=== PATIENT | male | born 1935 | race Caucasian/White ===

== ENCOUNTER 2016-06-07 16:08 | Inpatient (IN) | payer OTHER, MEDICARE ==
[~2016-06-07] VITALS: Ht 172.7 cm; Wt 77.2 kg
[~2016-06-07 16:08] MED LIST: LEVAQUIN500 M1 PO; MEDROL4 M2 PO; PROAIR HFA8.5 GM INH
--- NOTE | 2016-06-07 16:21 | NUR ---
TRIAGE: PT TO ER WITH C/C SWELLING TO BLE IN THE LAST 1-2 WEEKS, 18 LB WEIGHT GAIN IN APPROX 1 MONTH. SENT TO ER BY DR SERRANO OFFICE FOR EVAL. ?FLUID OVERLOAD. TAKES LASIX DAILY BUT "ALL OF A SUDDEN IT DON'T WORK ANY MORE". STATES GETS SOB WHEN WALKING OR GOING UPSTAIRS. DENIES ANY PAIN.
--- NOTE | 2016-06-07 16:21 | NUR ---
Informed waiting has been performed.
--- NOTE | 2016-06-07 18:44 | NUR ---
LABS DRAWN AND SENT LAV SST BLUE GRY
[2016-06-07 18:50] LABS: ABSOLUTE BASOPHIL COUNT 0 /CUMM (0.0-0.2); ABSOLUTE EOSINOPHIL COUNT 0.1 /CUMM (0.0-0.7); ABSOLUTE GRANULOCYTE CT 6.7 /CUMM (1.4-6.5); ABSOLUTE MONOCYTE COUNT 0.8 /CUMM (0.10-0.60); BASOPHIL % 0.3 % (0.0-2.0); EOSINOPHIL % 0.9 % (0-5); HEMATOCRIT 39.3 % (42-52); MEAN CORPUSCULAR HGB 30.6 PG (27.0-31.0); MEAN CORPUSCULAR HGB CONC 32.9 G/DL (33.0-37.0); MEAN CORPUSCULAR VOLUME 92.9 FL (80.0-94.0); MEAN PLATELET VOLUME 8.1 FL (7.4-10.4); PLATELET COUNT 152 /CUMM (130-400); RBC DISTRIBUTION WIDTH 16.9 % (11.5-14.5); RED BLOOD CELL CT 4.23 /CUMM (4.70-6.10); WHITE BLOOD CELL COUNT 8.7 /CUMM (4.8-10.8)
--- NOTE | 2016-06-07 19:30 | ED CARDIAC/CP/PALPITATIONS ---
History of Present Illness General Chief Complaint: General Adult Stated Complaint: SENT BY MD FOR EVAL ? FLUID OVERLOAD Source: patient Exam Limitations: no limitations Allergies Coded Allergies: Penicillins (Mild, RASH 06/07/16) Reconcile Medications Aspirin (Ecotrin*) 81 MG TABLET.DR 1 TAB PO DAILY HEART/BLOOD (Reported) Atorvastatin Calcium 40 MG TABLET 1 TAB PO DAILY CHOLESTEROL (Reported) Diltiazem HCl (Diltiazem 24HR ER) 180 MG CAP.ER.24H 1 CAP PO DAILY HEART ( Reported) Ergocalciferol (Vitamin D2) (Vitamin D) 400 UNIT TABLET 2 TAB PO DAILY SUPPLEMENT (Reported) Flaxseed Oil (Flax Oil) 1,000 MG CAPSULE 1 CAP PO DAILY SUPPLEMENT (Reported) Furosemide 20 MG TABLET 1 TAB PO DAILY DIURETIC (Reported) Lisinopril 40 MG TABLET 1 TAB PO DAILY BP (Reported) Metoprolol Succinate 50 MG TAB.ER.24H 1 TAB PO DAILY HEART/BP (Reported) Warfarin Sodium 3 MG TABLET 1 TAB PO DAILY BLOOD THINNER (Reported) Triage Note: TRIAGE: PT TO ER WITH C/C SWELLING TO BLE IN THE LAST 1-2 WEEKS, 18 LB WEIGHT GAIN IN APPROX 1 MONTH. SENT TO ER BY DR SERRANO OFFICE FOR EVAL. ?FLUID OVERLOAD. TAKES LASIX DAILY BUT "ALL OF A SUDDEN IT DON'T WORK ANY MORE". STATES GETS SOB WHEN WALKING OR GOING UPSTAIRS. DENIES ANY PAIN. Triage Nurses Notes Reviewed? yes HPI: 81 YO MALE WITH WORSENING B PEDAL EDEMA, WORSENING DIA, 8-10 STEPS AND HE NEEDS TO SIT, NO CP, NO NV, NO FEVER, NO CHILLS, NO RECENT TRAVEL. HE IS ON LASIX. NO MISSED DOSES. NO COUGH. HE IS ON LASIX AND COUMADIN. SX STARTED 3 WEEKS AGO AND ARE GETTING WOSRE. Patient noted to have a heart rate in the 50s upon arrival to ER room for, I discussed this with patient, he is comfortable in the bed, does not feel any shortness of breath or palpitations. States that he does not know that he's ever been told he has had a slow heart rate before He sees Dr. Alan Shabazz from cardiology. (RODRICK REESE,ELEANOR) Vital Signs & Intake/Output Vital Signs & Intake/Output Vital Signs Date Time Temp Pulse Resp B/P Pulse O2 O2 Flow FiO2 Ox Delivery Rate 06/09 0819 97.4 81 18 110/70 96 Room Air 06/09 0025 98.2 62 18 110/50 91 Room Air 06/09 0000 Room Air 06/08 1600 Room Air 06/08 1546 98.0 86 17 140/70 94 Room Air ED Intake and Output 06/09 0000 06/08 1200 Intake Total 1200 400 Output Total 1200 1300 Balance 0 -900 Intake, IV 0 Intake, Oral 1200 400 Number 0 Bowel Movements Output, Urine 1200 1300 Patient 171 lb Weight Past History Travel History Traveled to [place] past 21 day No Medical History Any Pertinent Medical History? 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 History of prior cholangitis in 2002 and ERCP in 2002 Surgical History Surgical History: CABG Psychosocial History Who do you live with Patient/Self Services at Home None What is your primary language [place] Tobacco Use: Quit >30 days ago ETOH Use: denies use Illicit Drug Use: denies illicit drug use Family History Hx Contributory? No (ELEANOR VANEGAS) Review of Systems Review of Systems Constitutional: Reports: see HPI. EENTM: Reports: no symptoms. Respiratory: Reports: see HPI. Cardiovascular: Reports: see HPI. GI: Reports: no symptoms. Genitourinary: Reports: no symptoms. Musculoskeletal: Reports: no symptoms. Skin: Reports: no symptoms. Neurological/Psychological: Reports: no symptoms. Hematologic/Endocrine: Reports: no symptoms. Immunologic/Allergic: Reports: no symptoms. All Other Systems: Reviewed and Negative (ELEANOR VANEGAS) Physical Exam Physical Exam Cardiovascular: POSITIVE SYSTOLIC MURMUR, HEART RATE AROUND 50 BPM, IRREGULARLY IRREGULAR Comments: Well-developed well-nourished no apparent distress. HEENT: Atraumatic, extraocular motion intact Neck: Supple, no lymphadenopathy, mildly elevated JVP Back: Nontender Respiratory: No respiratory distress, mild crackles noted, midline surgical incision well-healed Abdomen: Obese, nontender Extremities: 2+ pitting bilateral lower extremity edema up to the knee, full range of motion There are small superficial wounds in various stages of healing noted to the pretibial region. Neuro: Alert and oriented x3 Psych: Mood affect normal, normal memory normal judgment. Skin: Warm and dry, no rash on exposed skin (ELEANOR VANEGAS) Core Measures ACS in differential dx? Yes Severe Sepsis Present: No Septic Shock Present: No (NIRAJ SANDERS,MARTHA Flannery) Progress Differential Diagnosis: AMI, aortic dissection, atrial fibrillation, cholecystitis, CHF/pulm edema, costochondritis, hyperkalemia, hypovolemia, hyperthyroid, hyperventilation, intracranial hemorrhage, musculoskeletal pain, myocarditis, pancreatitis, pericarditis, pneumonia, pneumothorax, PSVT, pulmonary embolism, PUD/GERD, PVCs/PACs, respiratory failure, rib fracture, sepsis, unstable angina, V-fib/V-Tach, WPW syndrome Initial ED EKG: ATRIAL FLUTTER, 50 BPM, RIGHT BUNDLE BRANCH BLOCK IS LOWER THAN PREVIOUS ekg, 87 BPM Prior EKG: changed Rhythm Strip: ATRIAL FLUTTER AT 50 BPM Comments: Patient with bradycardia, questionable new onset, he is asymptomatic while lying in the bed. We'll pursue cardiac workup, questionable CHF. Given 40 mg of Lasix IV. Discussed with Dr. Wharton, signed out at change of shift. (ELEANOR VANEGAS) Plan of Care: Orders Procedure Date/time Status PROTHROMBIN TIME 06/10 0600 Active MAGNESIUM 06/10 0600 Active BASIC ELECTROLYTES PLUS BUN&CR 06/10 0600 Active XRY-CHEST XRAY, PA AND LATERAL 06/09 0902 Active PROTHROMBIN TIME 06/09 0600 Complete MAGNESIUM 06/09 0600 Complete BASIC ELECTROLYTES PLUS BUN&CR 06/09 0600 Complete MAGNESIUM 06/08 1755 Complete BASIC ELECTROLYTES PLUS BUN&CR 06/08 1755 Complete MAGNESIUM 06/08 0655 Complete PT Evaluate & Treat 06/08 UNK Active Lab Add-on Test 06/08 UNK Active Current Medications Sig/Duane Start time Last Medication Dose Stop Time Status Admin Warfarin Sodium 3 MG COUMADIN 1700 ONE 06/09 1700 AC (Coumadin) 06/09 1701 Metoprolol Succinate 25 MG DAILY 06/09 1000 AC (Toprol XL) Oxycodone HCl 10 MG Q6P PRN 06/07 2245 AC (Roxicodone) Laboratory Tests 06/09/16 0610: Anion Gap 6, Estimated GFR 42 L, BUN/Creatinine Ratio 16.3, Magnesium 1.7, PT 24.3 H, INR 2.33 H 06/08/16 1800: Anion Gap 10, Estimated GFR 42 L, BUN/Creatinine Ratio 15.6, Magnesium 1.6 06/08/16 1739: Magnesium Cancelled Diagnostic Imaging: Viewed by Me: Radiology Read. Discussed w/RAD: Radiology Read. CXR Impression: PATIENT: CHRIS LANDERS PRESENT AGE: 81 PATIENT ACCOUNT NO: [id number] : 34 LOCATION: [facility] ORDERING PHYSICIAN: ELEANOR REESE SERVICE DATE: 06/07/16 EXAM TYPE: RAD - XRY-PORTABLE CHEST XRAY EXAMINATION: XR PORTABLE CHEST CLINICAL INFORMATION: CHF COMPARISON: 07/29/2015 TECHNIQUE: Portable AP view of the chest was obtained. FINDINGS: Cardiac leads overlie the chest. Median sternotomy wires appear intact. Surgical clips overlie the mediastinum. The lungs are well expanded. Mild interstitial prominence noted with central vascular prominence. No pleural effusion or pneumothorax. The cardiomediastinal silhouette remains prominent. IMPRESSION: Findings suggestive of volume overload with central vascular prominence and interstitial prominence. Prominent cardiac silhouette. DICTATED BY: JEREMIAS RUCKER MD DATE/TIME DICTATED:06/07/162016 DIAMOND POLISHER: MICKIE DATE/TIME TRANSCRIBED:06/07/162016 CONFIDENTIAL, DO NOT COPY WITHOUT APPROPRIATE AUTHORIZATION. <Electronically signed in Other Vendor System> SIGNED BY: JEREMIAS RUCKER MD 06/07/162020 Comments: His ambulatory saturation was 94% on room air. (NIRAJ SANDERS,MARTHA Flannery) Departure Departure Referrals: SWETHA TERRAZAS MD (PCP/Family) Departure Forms: Customer Survey General Discharge Information (RODRICK REESE,ELEANOR) Departure Disposition: STILL A PATIENT Condition: Guarded Clinical Impression Primary Impression: Pulmonary edema Admission Note Spoke With: ALAN SHABAZZ MD, V. Documentation of Exam: Documentation of any treatments & extenuating circumstances including Concerns Regarding Discharge (functional status, medication knowledge or non-compliance, living conditions, etc.) that warrant an admission rather than observation: [ Patient is fluid overloaded and has pulmonary edema. Patient has no history of pulmonary edema. Patient will require admission to telemetry with serial enzymes, IV diuresis and cardiology evaluation.] PA/FIELD INSTRUCTOR Co-Sign Statement Statement: ED Attending supervision documentation- [X] I saw and evaluated the patient. I have also reviewed all the pertinent lab results and diagnostic results. I agree with the findings and the plan of care as documented in the PA's/FIELD INSTRUCTOR's documentation. [X] I have reviewed the ED Record and agree with the PA's/FIELD INSTRUCTOR's documentation. [] Additions or exceptions (if any) to the PAs/FIELD INSTRUCTOR's note and plan are summarized below: [] (NIRAJ SANDERS,MARTHA Flannery) Critical Care Note Critical Care Note Critical Care Time: non-applicable (NIRAJ SANDERS,MARTHA Flannery)
[2016-06-07] MEDS ORDERED: DILTIAZEM 24HR180 MG PO (19:51)
[2016-06-07] MEDS ORDERED: LOSARTAN POTASS25 M1 PO (19:51)
[2016-06-07] MEDS ORDERED: ATORVASTATIN CA40 M1 PO (19:51)
[2016-06-07] MEDS ORDERED: METOPROLOL SUCC50 M2 PO (19:52)
[2016-06-07] MEDS ORDERED: WARFARIN SODIUM3 M1 PO (19:53)
[2016-06-07] MEDS ORDERED: PREDNISONE10 M2 PO (19:53)
[2016-06-07] MEDS ORDERED: FUROSEMIDE20 M1 PO (19:53)
[2016-06-07] MEDS ORDERED: FLAX OIL1000 M1 PO (19:56)
[2016-06-07] MEDS ORDERED: ASPIRIN EC81 M1 PO (19:56)
[2016-06-07] MEDS ORDERED: VITAMIN D400 UNIT PO (19:56)
--- NOTE | 2016-06-07 19:56 | NUR ---
CHEST XRAY BEING DONE AT BEDSIDE
[2016-06-07] MEDS ORDERED: LISINOPRIL40 M1 PO (19:57)
[2016-06-07 19:59] LABS: PT 25.9 SEC (9.4-12.5)
--- NOTE | 2016-06-07 20:21 | RADIOLOGY REPORT ---
EXAMINATION: XR PORTABLE CHEST CLINICAL INFORMATION: CHF COMPARISON: 07/29/2015 TECHNIQUE: Portable AP view of the chest was obtained. FINDINGS: Cardiac leads overlie the chest. Median sternotomy wires appear intact. Surgical clips overlie the mediastinum. The lungs are well expanded. Mild interstitial prominence noted with central vascular prominence. No pleural effusion or pneumothorax. The cardiomediastinal silhouette remains prominent. IMPRESSION: Findings suggestive of volume overload with central vascular prominence and interstitial prominence. Prominent cardiac silhouette.
--- NOTE | 2016-06-07 20:30 | NUR ---
PT MEDICATED WITH 40 MG LASIX IV PER EMAR
--- NOTE | 2016-06-07 21:09 | NUR ---
PT'S AMBULATORY O2 SAT 94%-95% ON ROOM AIR. DR HEALY NOTIFIED.
--- NOTE | 2016-06-07 22:03 | NUR ---
PT MEDICATED WITH ANOTHER 40MG IV LASIX PER EMAR. LIGHTS DIMMED FOR COMFORT. WILL CTM AND MONITOR OUTPUT. PT REMAINS A FLUTTER ON MONITOR HR 60.
--- NOTE | 2016-06-07 22:36 | History & Physical ---
JENNIFER SANDERS,AZRA 06/07/16 2229: General Information and HPI MD Statement: I have seen and personally examined CHRIS LANDERS and documented this H&P. The patient is a 81 year old M who presented with a patient stated chief complaint of [shortness of breath on exertion]. Source of Information: patient, old records Exam Limitations: no limitations History of Present Illness: This is an 81-year-old gentleman with a past history significant for hypertension, atrial fibrillation, hyperlipidemia, coronary artery disease status post CABG in 2004, aortic valve replacement with porcine presents to the emergency room sent in from his PCPs office with progressive dyspnea. Patient states that over the course of last couple of days he's been having dyspnea with exertion. He was seen in this PCPs office this afternoon for the same who recommended he come to the emergency room given the fact that his dyspnea on exertion which is alleviated with rest and also the fact that he has put on over 16 pounds of weight over the course of last 2 weeks. Patient was given IV Lasix in the emergency room and has diuresed significantly with alleviation of his shortness of breath. At present he is sitting comfortably in his hospital bed denies any chest pain, shortness of breath, nausea, vomiting, diarrhea, fevers, chills, recent illnesses sick contacts. He denies any orthopnea or paroxysmal nocturnal dyspnea, he uses one pillow to sleep and this has remained constant. 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 History of prior cholangitis in 2002 and ERCP in 2002 Surgical History Surgical History: CABG Past Family/Social History Psychosocial History Services at Home: None Smoking Status: Former Smoker ETOH Use: denies use Illicit Drug Use: denies illicit drug use Review of Systems Review of Systems Constitutional: Reports: see HPI. Exam & Diagnostic Data Last 24 Hrs of Vital Signs/I&O Vital Signs Date Time Temp Pulse Resp B/P Pulse O2 O2 Flow FiO2 Ox Delivery Rate 06/07 2204 97.5 60 22 136/68 97 Room Air 06/07 2045 Room Air 06/07 1616 97.3 52 24 144/69 97 Room Air Physical Exam General Appearance Alert, Oriented X3, Cooperative, No Acute Distress Skin No Breakdown HEENT Atraumatic, PERRLA, EOMI Neck Supple, No JVD Lymphatic Axillary nl, Cervical nl Cardiovascular Regular Rate, Normal S1, Normal S2, 3/6 MYKE RUSB Lungs Normal Air Movement, faint crackles b/l lung bases Abdomen Normal Bowel Sounds, Soft, No Tenderness, No Hepatospenomegaly Neurological Normal Speech, Strength at 5/5 X4 Ext, Normal Tone, Sensation Intact, Cranial Nerves 3-12 NL Extremities No Clubbing, No Cyanosis, 2+ b/l LE edema Last 24 Hrs of Labs/Zachary: Laboratory Tests 06/07/16 1842: Anion Gap 9, Estimated GFR 39 L, BUN/Creatinine Ratio 17.1, Glucose 137 H, Calcium 9.1, Magnesium 1.8, Total Bilirubin 0.9, AST 29, ALT 36, Alkaline Phosphatase 78, Troponin I 0.03, [id number] Pept 2820 H, Total Protein 6.4, Albumin 3.5, Globulin 2.9, Albumin/Globulin Ratio 1.2, PT 25.9 H, INR 2.49 H, CBC w Diff NO MAN DIFF REQ, RBC 4.23 L, MCV 92.9, MCH 30.6, RDW 16.9 H, MPV 8.1, Gran % 77.0 H, Lymphocytes % 12.1 L, Monocytes % 9.7 H, Eosinophils % 0.9, Basophils % 0.3, Absolute Granulocytes 6.7 H, Absolute Lymphocytes 1.0 L, Absolute Monocytes 0.8 H, Absolute Eosinophils 0.1, Absolute Basophils 0, PUBS MCHC 32.9 L Diagnostic Data EKG Results Rate 49, QRS 138, QTC 387, atrial fibrillation, right bundle ranch block, no changes since previous tracing CXR Results IMPRESSION: Findings suggestive of volume overload with central vascular prominence and interstitial prominence. Prominent cardiac silhouette. Assessment/Plan Assessment: Assessment- 1. Fluid overload and pulmonary edema likely secondary to acute on chronic congestive heart failure 2. Dyspnea on exertion again likely secondary to CHF 3. History of coronary artery disease status post CABG in 2004 4. Porcine aortic valve replacement in 2004 5. Chronic atrial fibrillation 6. Hypertension 7. Hyperlipidemia 8. Chronic kidney disease Plan- Admit to telemetry Vitals per protocol Trend troponin and EKG Has received 80 mg of IV Lasix, will defer further diuresis until the morning after his renal function is assessed after morning labs Echocardiogram Cardiology consult Strict I's and O's, daily weight Fluid restriction CHF diet Hold ZAC Continue all other home meds Pain pathway DVT prophylaxis been addressed with Coumadin Full code As Ranked By This Provider Problem List: 1. Pulmonary edema 2. Replacement of aortic valve 3. Dyslipidemia 4. Essential hypertension 5. Coronary arteriosclerosis Core Measures/Miscellaneous Acute Coronary Syndrome ACS Diagnosis: No Cerebrovascular Accident CVA/TIA Diagnosis: No Congestive Heart Failure CHF Diagnosis: Yes Comment: last echo 2002, unavailable Venous Thromboembolism VTE Risk Factors: Age > 40 VTE Prophylaxis Ordered Inpt: Pharm- Warfarin No Mech VTE prophylaxis d/t: No contraindications No VTE Pharm Prophylaxis d/t: No contraindications VTE Diagnosis: No VTE Type: NONE VTE Confirmed by (Test): NONE Severe Sepsis Severe Sepsis Present: No Septic Shock Septic Shock Present: No Miscellaneous Documentation Attending Case Discussed With: BRIELLE SHABAZZ MD, V. Primary Care Physician: SWETHA TERRAZAS MD Patient sees these Specialists Dr. Shabazz (Cardio) Dr. Herrera (Nephro at [facility]) Level of Patient Care: Telemetry Resident Review Statement Resident Statement: examined this patient, discussed with manufacturing engineering intern BRIELLE SHABAZZ MD 06/08/16 0915: General Information and HPI Allergies/Medications Home Med list Aspirin (Ecotrin*) 81 MG TABLET.DR 1 TAB PO DAILY HEART/BLOOD (Reported) Atorvastatin Calcium 40 MG TABLET 1 TAB PO DAILY CHOLESTEROL (Reported) Diltiazem HCl (Diltiazem 24HR ER) 180 MG CAP.ER.24H 1 CAP PO DAILY HEART ( Reported) Ergocalciferol (Vitamin D2) (Vitamin D) 400 UNIT TABLET 2 TAB PO DAILY SUPPLEMENT (Reported) Flaxseed Oil (Flax Oil) 1,000 MG CAPSULE 1 CAP PO DAILY SUPPLEMENT (Reported) Furosemide 20 MG TABLET 1 TAB PO DAILY DIURETIC (Reported) Warfarin Sodium 3 MG TABLET 1 TAB PO DAILY BLOOD THINNER (Reported) Attending MD Review Statement Attending Statement Attending MD Statement: examined this patient, discuss w/resident/PA/PRIVATE INQUIRY AGENT Attending Assessment/Plan: Chris Landers is an 81-year-old male who I have been following for over 30 years. He originally had bypass surgery in 1980. In 1991 he had angioplasty and had several recurrent angioplasties since then. In 2004 he had a redo bypass, and at this point had an aortic valve replacement with a bioprosthesis for severe aortic stenosis. His bypass surgery in 2004 was a POWER to the LAD and saphenous vein graft to the marginal PDA. Since that time, he has been doing pretty well from the standpoint of ischemia. He has had no further ischemic events, myocardial infarctions, etc. The patient also has atrial flutter, which was first noted in 2009. This was asymptomatic and seen on a routine EKG. He was treated medically with beta blockers and anticoagulation. His heart rate has been stable. His average heart rate in 2012 was 66 on a Holter. He had occasional mild pauses but he is asymptomatic from this, and it was determined at that time that there is no indication for a pacemaker unless he should develop symptoms of bradycardia. He is also hypertensive and has dyslipidemia and these are under pretty good control. Finally he has had prostate cancer treated with radiation in 2011. At his last office visit about 1 year ago he had a complaint of shortness of breath with more than usual exertion and got pretty short of breath when he was helping his daughter move heavy objects. He typically does not do that level of exercise. He had no complaints of chest pain, palpitations, orthopnea, PND, dizziness, or syncope. He had no change in his medications. He did note that his blood pressure was running a little high when he gets his blood pressure checked at the anticoagulation clinic. I checked it and the blood pressure was running in the 150 to 160 range at his visits. He is on diltiazem, lisinopril, lasix and metoprolol. His anticoagulation has been going well. Chris hasn't been seen in the office for over a year because he is having was having problems with his insurance and kept canceling appointments. He actually has an appointment to see me in a couple of weeks. However over the past couple of weeks he has noted increasing shortness of breath, edema and weight gain. He finally came to the emergency room and was found to be in congestive heart failure. He has been given IV Lasix and is already diuresing significantly. He has not had any chest pain. His enzymes are negative so far. His EKG shows atrial flutter with right bundle branch block, which is his baseline. On examination he has a few posterior rales and a prominent systolic ejection murmur at the base and apex. He has mild peripheral edema. It is not clear why Chris went into congestive heart failure. His last echocardiogram showed good left ventricular function. We will obviously get another echocardiogram to look for any changes. In the meantime I would continue him on IV Lasix and monitor his electrolytes closely. continue him on IV Lasix and monitor his electrolytes closely.
--- NOTE | 2016-06-07 22:44 | NUR ---
PT HAS BED #180-2
--- NOTE | 2016-06-07 22:50 | NUR ---
PT VOIDED TOTAL OF 900CCS CLEAR YELLOW URINE SO FAR. AFIB ON MONITOR HR 60. DENIES SOB.
--- NOTE | 2016-06-07 23:02 | NUR ---
REPORT GIVEN TO GRACIE YO.
--- NOTE | 2016-06-07 23:11 | NUR ---
PT MEDICATED WITH COUMADIN PER EMAR.
[2016-06-08 08:06] VITALS: BP 128/78
[2016-06-08 08:30] LABS: PT 26.8 SEC (9.4-12.5)
--- NOTE | 2016-06-08 13:02 | PN- Housestaff ---
Subjective Follow-up For: Acute CHF exacerbation Tele-Events Since Last Visit: Atrial flutter Subjective: Seen and examined patient, complaints of shortness of breath on ambulating to the bathroom however does not complain of short of breath on rest. Denies chest pain, fever, chills. Review of Systems Constitutional: Denies: chills, diaphoresis, fever, malaise, weakness, unexplained weight loss. Cardiovascular: Denies: chest pain, edema, orthopena, palpitations, peripheral edema, syncope. Respiratory: Reports: short of breath. Denies: cough, hemoptysis, orthopnea, sputum production, stridor, wheezing. Objective Last 24 Hrs of Vital Signs/I&O Vital Signs Date Time Temp Pulse Resp B/P Pulse O2 O2 Flow FiO2 Ox Delivery Rate 06/08 1056 128/78 06/08 0953 Room Air 06/08 0806 98.3 83 18 128/78 95 Room Air 06/08 0800 Room Air 06/07 2350 Room Air 06/07 2204 97.5 60 22 136/68 97 Room Air 06/07 2045 Room Air 06/07 1616 97.3 52 24 144/69 97 Room Air Intake & Output 06/08 1600 06/08 0800 06/08 0000 Intake Total 400 0 Output Total 1300 1100 Balance -900 -1100 Intake, IV 0 Intake, Oral 400 0 Number 0 Bowel Movements Output, Urine 1300 1100 Patient 171 lb 186 lb Weight Physical Exam General Appearance: Alert, Oriented X3, Cooperative, No Acute Distress Cardiovascular: Regular Rate, Normal S1, Normal S2 Lungs: Clear to Auscultation, Normal Air Movement Extremities: No Edema Current Medications: Current Medications Sig/Duane Start time Last Medication Dose Route Stop Time Status Admin Acetaminophen 650 MG Q6P PRN 06/07 2245 AC 06/08 PO 0800 Aspirin Buffered 81 MG DAILY 06/08 1000 AC 06/08 PO 1056 Atorvastatin Calcium 40 MG 1700 06/08 1700 AC PO Diltiazem HCl 180 MG DAILY 06/08 1000 AC 06/08 PO 1057 Furosemide 20 MG DAILY 06/08 1015 AC 06/08 IV 1101 Furosemide 0 .STK-MED ONE 06/07 2156 DC IV Furosemide 40 MG ONCE ONE 06/07 2144 DC 06/07 IV 06/07 Furosemide 0 .STK-MED ONE 06/07 2028 DC IV Furosemide 40 MG ONCE ONE 06/07 1999 DC 06/07 IV PUSH 06/07 Metoprolol Succinate 50 MG DAILY 06/08 1000 AC 06/08 PO 1056 Oxycodone HCl 5 MG Q6P PRN 06/07 224 AC PO Oxycodone HCl 10 MG Q6P PRN 06/07 2245 AC PO Warfarin Sodium 3 MG COUMADIN 1700 ONE 06/08 1700 AC PO 06/08 170 Warfarin Sodium 3 MG ONCE ONE 06/07 2300 DC 06/07 PO 06/07 2301 2311 Last 24 Hrs of Lab/Zachary Results Last 24 Hrs of Labs/Mics: Laboratory Tests 06/08/16 0655: Anion Gap 10, Estimated GFR 49 L, BUN/Creatinine Ratio 17.9, Troponin I 0.05, PT 26.8 H, INR 2.58 H 06/08/16 0045: Troponin I 0.04 06/07/16 1842: Anion Gap 9, Estimated GFR 39 L, BUN/Creatinine Ratio 17.1, Glucose 137 H, Calcium 9.1, Magnesium 1.8, Total Bilirubin 0.9, AST 29, ALT 36, Alkaline Phosphatase 78, Troponin I 0.03, Zxt-R-Iqjsjhorolf Pept 2820 H, Total Protein 6.4, Albumin 3.5, Globulin 2.9, Albumin/Globulin Ratio 1.2, PT 25.9 H, INR 2.49 H, CBC w Diff NO MAN DIFF REQ, RBC 4.23 L, MCV 92.9, MCH 30.6, RDW 16.9 H, MPV 8.1, Gran % 77.0 H, Lymphocytes % 12.1 L, Monocytes % 9.7 H, Eosinophils % 0.9, Basophils % 0.3, Absolute Granulocytes 6.7 H, Absolute Lymphocytes 1.0 L, Absolute Monocytes 0.8 H, Absolute Eosinophils 0.1, Absolute Basophils 0, PUBS MCHC 32.9 L Assessment/Plan Assessment: 81-year-old gentleman with a past history significant for hypertension, atrial fibrillation, hyperlipidemia, coronary artery disease, Bypass surgery in 1980, and 1991, several recurrent angioplasties, porcine aortic valve replacement admitted for shortness of breath, was given IV Lasix yesterday. Continues to complain of shortness of breath on exertion. Continues to be in a flutter. Problem list: A flutter New onset CHF Pulmonary edema Porcine aortic valve Hypertension Hyperlipidemia GABINO Plan: ACS ruled out by negative troponins and no new EKG changes continue strict I's and O's, fluid balance Echo pending On IV 20 Lasix daily per cardiology recommendations INR 2.58, will dose 3 mg of Coumadin today creatinine 1.4 today we'll continue to monitor CHF diet DVT prophylaxis with Coumadin Full code Problem List: 1. Replacement of aortic valve 2. Dyslipidemia 3. CHF (congestive heart failure) Pain Ratin Pain Location: na Pain Goal: Pain 4 or less Pain Plan: current regimen Tomorrow's Labs & Rationales: INR/bep/mag
[2016-06-08 15:46] VITALS: BP 140/70
--- NOTE | 2016-06-08 17:00 | NUR ---
AT THIS TIME, PT HAD A 3 SECOND PAUSE. PT IN AFLUTTER. HR 75. PT RESTING IN BED, ASYMPTOMATIC. RETAIL CASHIER JEREMIAH NOTIFIED & IN TO SEE PT. WILL CONTINUE TO MONITOR.
--- NOTE | 2016-06-08 17:20 | NUR ---
AT THIS TIME, PT BRADYCARDIC, AFLUTTER 50S. LICENSED PSYCHOLOGIST MANAGER JEREMIAH NOTIFIED. PT ASYMPOTMTIC. STAT LAB WORK ORDERED. WILL CONTINUE TO MONITOR.
--- NOTE | 2016-06-08 17:41 | Event Note ---
Event Note Event Note: Patient had 3-second pause around 445 pm. I evaluated the patient. He was comfortably sitting in bed, and denies any chest discomfort. Subsequently bradycardic to 48 on the playground monitor. Again I checked on the patient and he again reports feeling fine. Labs from this morning reviewed. Also reviewed tele events. His HR was in the 70s-80s throughout most of the day, intermittently going up as high as 120. Assessment: #Asymptomatic bradycardia, could be due to metoprolol (but it is his home meds) #[id number], need to rule out electrolyte abnormalities Plan: Follow up add on mag to this am lab follow stat bep and mag Mag noted to be low - repleted with one time mag ox
[2016-06-09 00:25] VITALS: BP 110/50
--- NOTE | 2016-06-09 08:07 | PN- Housestaff ---
Subjective Follow-up For: Acute CHF exacerbation Tele-Events Since Last Visit: aflutter, HR 54-61, episode of bradycardia yesterday and 3sec pause. Subjective: Seen and examined patient, complaints of b/l hip which radiates down his legs. Denies chest pain, fever, chills. Review of Systems Constitutional: Denies: chills, diaphoresis, fever, malaise, weakness, unexplained weight loss. Cardiovascular: Denies: chest pain, edema, orthopena, palpitations, peripheral edema, syncope. Respiratory: Denies: cough, hemoptysis, orthopnea, short of breath, sputum production, stridor, wheezing. Objective Last 24 Hrs of Vital Signs/I&O Vital Signs Date Time Temp Pulse Resp B/P Pulse O2 O2 Flow FiO2 Ox Delivery Rate 06/09 08 97.4 81 18 110/70 96 Room Air 06/09 0025 98.2 62 18 110/50 91 Room Air 06/09 0000 Room Air 06/08 1600 Room Air 06/08 1546 98.0 86 17 140/70 94 Room Air 06/08 1056 128/78 06/08 0953 Room Air Intake & Output 06/09 1600 06/09 0800 06/09 0000 Intake Total 0 480 Output Total 200 400 Balance -200 80 Intake, Oral 0 480 Output, Urine 200 400 Physical Exam General Appearance: Alert, Oriented X3, Cooperative, No Acute Distress Cardiovascular: Regular Rate, Normal S1, Normal S2 Lungs: Clear to Auscultation, Normal Air Movement Abdomen: Normal Bowel Sounds, Soft Extremities: No Edema Current Medications: Current Medications Sig/Duane Start time Last Medication Dose Route Stop Time Status Admin Acetaminophen 650 MG Q6P PRN 06/07 2245 AC 06/08 PO 0800 Aspirin Buffered 81 MG DAILY 06/08 1000 AC 06/08 PO 1056 Atorvastatin Calcium 40 MG 1700 06/08 1700 AC 06/08 PO 1607 Atropine Sulfate 1 MG .STK-MED ONE 06/08 1741 DC IM 06/08 1742 Diltiazem HCl 180 MG DAILY 06/08 1000 AC 06/08 PO 1057 Furosemide 40 MG .STK-MED ONE 06/08 1057 DC IV 06/08 1058 Furosemide 20 MG DAILY 06/08 1015 DC 06/08 IV 1101 Magnesium Oxide 400 MG ONE ONE 06/09 0900 AC PO 06/09 0901 Magnesium Oxide 400 MG ONE ONE 06/08 1944 DC 06/08 PO 06/08 Metoprolol Succinate 25 MG DAILY 06/09 1000 AC PO Metoprolol Succinate 50 MG DAILY 06/08 1000 DC 06/08 PO 1056 Oxycodone HCl 5 MG Q6P PRN 06/07 2245 AC PO Oxycodone HCl 10 MG Q6P PRN 06/07 2245 AC PO Warfarin Sodium 3 MG COUMADIN 1700 ONE 06/08 1700 DC 06/08 PO 06/08 1701 1607 Last 24 Hrs of Lab/Zachary Results Last 24 Hrs of Labs/Mics: Laboratory Tests 06/09/16 0610: Anion Gap 6, Estimated GFR 42 L, BUN/Creatinine Ratio 16.3, Magnesium 1.7, PT 24.3 H, INR 2.33 H 06/08/16 1800: Anion Gap 10, Estimated GFR 42 L, BUN/Creatinine Ratio 15.6, Magnesium 1.6 06/08/16 1739: Magnesium Cancelled Assessment/Plan Assessment: 81-year-old gentleman with a past history significant for hypertension, atrial fibrillation, hyperlipidemia, coronary artery disease, Bypass surgery in 1980, and 1991, several recurrent angioplasties, porcine aortic valve replacement admitted for shortness of breath, was given IV Lasix yesterday. Continues to be in a flutter. Problem list: A flutter New onset CHF Pulmonary edema Porcine aortic valve Hypertension Hyperlipidemia GABINO Plan: ACS ruled out by negative troponins and no new EKG changes continue strict I's and O's, -1100 fluid balance Echo pending On IV 20 Lasix , will obtain cxr today and assess the need to continue IV lasix. INR 2.33, will dose 3 mg of Coumadin today creatinine 1.6 today we'll continue to monitor PT to evaluate today heart healthy diet DVT prophylaxis with Coumadin Full code Problem List: 1. CHF (congestive heart failure) Pain Ratin Pain Location: na Pain Goal: Pain 4 or less Pain Plan: current regimen Tomorrow's Labs & Rationales: bep/mag/INR
[2016-06-09 08:19] VITALS: BP 110/70
[2016-06-09 08:19] LABS: PT 24.3 SEC (9.4-12.5)
--- NOTE | 2016-06-09 11:00 | NUR ---
NSG NOTE: PATIENT BRADYCARDIC 47-50S; BP 120/50; DENIES DIZZINESS; DR SHELLI HERNANDEZ NOTIFIED; CARDIZEM CD ADMINISTERED PREVIOUS PER EMAR; TOPROL XL 25MG HELD; AWARE; WILL MONITOR
--- NOTE | 2016-06-09 13:04 | ECHOCARDIOGRAM REPORT ---
CHRIS LANDERS Age: 81 : 1935 Gender: M Exam Date: 06/08/2016 19:23 Exam Location: [address] Ht (in): 68 Wt (lb): 171 BSA: 1.94 BP: 140 / 70 Ordering Physician: ZA RODRIGUEZ M Referring Physician: Alan Shabazz MD Chief, SoC Technologist: Dahlia Mcfarland [facility] Room Number: [id number] Indications: HEART FAILURE Rhythm: Atrial flutter Technical Quality: Good FINDINGS Left Ventricle Normal size left ventricle. Moderate concentric left ventricular hypertrophy. Normal left ventricular ejection fraction visually estimated at >65 %. No obvious regional wall motion abnormalities. Right Ventricle The right ventricle is normal in size and function. Right Atrium The right atrium is normal in size. Left Atrium Mild left atrial dilatation. Mitral Valve The mitral valve is moderately thickened with reduced opening. There is moderate calcification of the mitral annulus posteriorly. There is mild to moderate mitral stenosis. There is mild mitral regurgitation. Aortic Valve The aortic valve is a bioprosthesis. The valve leaflets are thickened with reduced opening. There is mild aortic stenosis. Trace aortic regurgitation. Tricuspid Valve Structurally normal tricuspid valve. Uasr-wn-ortfgfss tricuspid regurgitation. Right ventricular systolic pressure estimated to be elevated at 45-50 mmHg. Moderate pulmonary hypertension. Pulmonic Valve Pulmonic valve not well visualized. No pulmonic regurgitation. Pericardium Normal pericardium without effusion. No pleural effusion. Great Vessels The aortic root is normal size. The inferior vena cava is mildly dilated. CONCLUSIONS Moderate concentric left ventricular hypertrophy. Normal left ventricular ejection fraction visually estimated at >65 No obvious regional wall motion abnormalities. Mild left atrial dilatation. The mitral valve is moderately thickened with reduced opening. There is moderate calcification of the mitral annulus posteriorly. There is mild to moderate mitral stenosis. There is mild mitral regurgitation. The aortic valve is a bioprosthesis. The valve leaflets are thickened with reduced opening. There is mild aortic stenosis. Trace aortic regurgitation. Nvyr-oo-siagcpsj tricuspid regurgitation. Right ventricular systolic pressure estimated to be elevated at 45- 50 mmHg. Moderate pulmonary hypertension. The inferior vena cava is mildly dilated. Alan Shabazz M.D. (Electronically Signed) Final Date: 09 June 2016 13:04 MEASUREMENTS (Male / Female) Normal Values 2D ECHO LV Diastolic Diameter PLAX 4.1 cm 4.2 - 5.9 / 3.9 - 5.3 cm LV Systolic Diameter PLAX 2.7 cm 2.1 - 4.0 cm LV Fractional Shortening PLAX 34.1 % 25 - 46 % LV Ejection Fraction 2D Teich 63.6 % IVS Diastolic Thickness 1.4 cm LVPW Diastolic Thickness 1.4 cm LV Relative Wall Thickness 0.7 RV Internal Dim ED PLAX 3.4 cm 1.9 - 3.8 cm LVOT Diameter 2.1 cm Aortic Root Diameter 2.6 cm LA Systolic Diameter LX 4.7 cm 3.0 - 4.0 / 2.7 - 3.8 cm LA Volume 39.0 cm 18 - 58 / 22 - 52 cm Ascending Aorta Diameter 3.3 cm DOPPLER AV Peak Velocity 258.0 cm/s AV Peak Gradient 26.6 mmHg AV Mean Velocity 174.0 cm/s AV Mean Gradient 14.0 mmHg AV Velocity Time Integral 46.0 cm LVOT Peak Velocity 171.0 cm/s LVOT Peak Gradient 11.7 mmHg LVOT Mean Velocity 127.0 cm/s LVOT Mean Gradient 7.0 mmHg LVOT Velocity Time Integral 36.9 cm LVOT Stroke Volume 127.8 cm AV Area Cont Eq vti 2.8 cm AV Area Cont Eq pk 2.3 cm MV Peak Velocity 220.5 cm/s MV Peak Gradient 19.4 mmHg MV Mean Velocity 120.0 cm/s MV Mean Gradient 7.5 mmHg Mitral E Point Velocity 197.0 cm/s MV PHT Velocity 230.0 cm/s MV Deceleration [place] 1040.5 cm/s MV Pressure Half Time 66.3 ms MV Area PHT 3.3 cm MV Deceleration Time 156.0 ms TR Peak Velocity 331.0 cm/s TR Peak Gradient 43.8 mmHg Right Atrial Pressure 5.0 mmHg Pulmonary Artery Systolic Pressu 48.8 mmHg Right Ventricular Systolic Press 48.8 mmHg PV Peak Velocity 108.0 cm/s PV Peak Gradient 4.7 mmHg PV Mean Velocity 68.3 cm/s PV Mean Gradient 2.0 mmHg PV Velocity Time Integral 20.7 cm LV E' Lateral Velocity 12.7 cm/s Mitral E to LV E' Lateral Ratio 15.5 LV E' Septal Velocity 6.8 cm/s Mitral E to LV E' Septal Ratio 28.9
--- NOTE | 2016-06-09 13:20 | PN- Cardiology ---
Subjective Subjective: The patient feels a little bit better today. He is less short of breath. He has been diuresing well. He has not received any diuretics today. He remains in atrial flutter which is a chronic rhythm for him. Objective Vital Signs and I&Os Vital Signs Date Time Temp Pulse Resp B/P Pulse O2 O2 Flow FiO2 Ox Delivery Rate 06/09 1132 56 120/50 06/09 0819 97.4 81 18 110/70 96 Room Air 06/09 0025 98.2 62 18 110/50 91 Room Air 06/09 0000 Room Air 06/08 1600 Room Air 06/08 1546 98.0 86 17 140/70 94 Room Air Intake & Output 06/09 1600 06/09 0806/09 0000 06/08 1600 06/08 0800 06/08 0000 Intake Total 0 480 720 400 0 Output Total 200 389 412 8645 1100 Balance -200 80 -80 -900 -1100 Intake, IV 0 Intake, Oral 0 480 720 400 0 Number 0 Bowel Movements Output, Urine 200 778 519 5655 1100 Patient 171 lb 186 lb Weight Physical Exam: he is comfortable HEENT exam is normal Neck veins are not distended Carotids are normal Chest is clear Heart reveals a slightly irregular rhythm and a grade 2 to 3/6 systolic ejection murmur at the base Extremities reveal no edema Current Medications: Current Medications Sig/Duane Start time Last Medication Dose Route Stop Time Status Admin Acetaminophen 650 MG Q6P PRN 06/075 AC 06/08 PO 0800 Aspirin Buffered 81 MG DAILY 06/08 1000 AC 06/09 PO 0947 Atorvastatin Calcium 40 MG 1700 06/08 1700 AC 06/08 PO 1607 Atropine Sulfate 1 MG .STK-MED ONE 06/08 1741 DC IM 06/08 1742 Diltiazem HCl 180 MG DAILY 06/08 1000 AC 06/09 PO 0947 Furosemide 20 MG DAILY 06/08 1015 DC 06/08 IV 1101 Magnesium Oxide 400 MG ONE ONE 06/09 09 DC 06/09 PO 06/09 09 0947 Magnesium Oxide 400 MG ONE ONE 06/08 194 DC 06/08 PO 06/08 Metoprolol Succinate 25 MG DAILY 06/09 1000 AC 06/09 PO 1132 Metoprolol Succinate 50 MG DAILY 06/08 1000 DC 06/08 PO 1056 Oxycodone HCl 5 MG Q6P PRN 06/075 06/09 PO 0859 Oxycodone HCl 10 MG Q6P PRN 06/07 2245 AC PO Warfarin Sodium 3 MG COUMADIN 1700 ONE 06/09 1700 AC PO 06/09 1701 Warfarin Sodium 3 MG COUMADIN 1700 ONE 06/08 1700 DC 06/08 PO 06/08 1701 1607 Results Last 48 Hrs of Labs/Mics: Laboratory Tests 06/09/16 0610: Anion Gap 6, Estimated GFR 42 L, BUN/Creatinine Ratio 16.3, Magnesium 1.7, PT 24.3 H, INR 2.33 H 06/08/16 1800: Anion Gap 10, Estimated GFR 42 L, BUN/Creatinine Ratio 15.6, Magnesium 1.6 06/08/16 1739: Magnesium Cancelled 06/08/16 0655: Anion Gap 10, Estimated GFR 49 L, BUN/Creatinine Ratio 17.9, Magnesium 1.5 L, Troponin I 0.05, PT 26.8 H, INR 2.58 H 06/08/16 0045: Troponin I 0.04 06/07/16 1842: Anion Gap 9, Estimated GFR 39 L, BUN/Creatinine Ratio 17.1, Glucose 137 H, Calcium 9.1, Magnesium 1.8, Total Bilirubin 0.9, AST 29, ALT 36, Alkaline Phosphatase 78, Troponin I 0.03, Kkr-V-Bngedeaxqhz Pept 2820 H, Total Protein 6.4, Albumin 3.5, Globulin 2.9, Albumin/Globulin Ratio 1.2, PT 25.9 H, INR 2.49 H, CBC w Diff NO MAN DIFF REQ, RBC 4.23 L, MCV 92.9, MCH 30.6, RDW 16.9 H, MPV 8.1, Gran % 77.0 H, Lymphocytes % 12.1 L, Monocytes % 9.7 H, Eosinophils % 0.9, Basophils % 0.3, Absolute Granulocytes 6.7 H, Absolute Lymphocytes 1.0 L, Absolute Monocytes 0.8 H, Absolute Eosinophils 0.1, Absolute Basophils 0, PUBS MCHC 32.9 L Recent Imaging Studies: PATIENT: CHRIS ALSTON PRESENT AGE: 81 PATIENT ACCOUNT NO: [id number] : 34 LOCATION: [facility] ORDERING PHYSICIAN: ELEANOR REESE SERVICE DATE: 02/28/17-1938 EXAM TYPE: RAD - XRY-PORTABLE CHEST XRAY EXAMINATION: XR PORTABLE CHEST CLINICAL INFORMATION: CHF COMPARISON: 07/29/2015 TECHNIQUE: Portable AP view of the chest was obtained. FINDINGS: Cardiac leads overlie the chest. Median sternotomy wires appear intact. Surgical clips overlie the mediastinum. The lungs are well expanded. Mild interstitial prominence noted with central vascular prominence. No pleural effusion or pneumothorax. The cardiomediastinal silhouette remains prominent. IMPRESSION: Findings suggestive of volume overload with central vascular prominence and interstitial prominence. Prominent cardiac silhouette. DICTATED BY: CHAIM SANDERS,JEREMIAS DATE/TIME DICTATED:06/07/162016 NOTE TAKER:MICKIE DATE/TIME TRANSCRIBED:06/07/162016 CONFIDENTIAL, DO NOT COPY WITHOUT APPROPRIATE AUTHORIZATION. <Electronically signed in Other Vendor System> SIGNED BY: CHAIM SANDERS,JEREMIAS 06/07 Assessment/Plan Assessment/Plan Mr. Alston is doing a little bit better. He has diuresed some. He has some some degree of CKD which has not worsened. He has mild stenosis on his prosthetic aortic valve and some degree of mitral stenosis due to calcification of his annulus and valve. I recommend additional IV Lasix today with continued diuresis. I recommend a follow-up chest x-ray. I recommend following his renal function closely. Hopefully he will be able to be discharged by tomorrow if he continues to diuresis. Continue telemetry? Yes
--- NOTE | 2016-06-09 15:25 | RADIOLOGY REPORT ---
EXAMINATION: XR CHEST CLINICAL INFORMATION: Shortness of breath. Pulmonary congestion. Comparison from previous x-ray. COMPARISON: Portable chest 06/07/2016. TECHNIQUE: 2 views of the chest were obtained. FINDINGS: There is borderline heart size. There is stable scarring in the lingula. There is no congestion or focal consolidation. There is no edema. There are no pleural effusions. Intact sternal wires are again noted. IMPRESSION: Stable lingular scarring. Otherwise, no acute cardiopulmonary process.
[2016-06-09 16:21] VITALS: BP 123/67
--- NOTE | 2016-06-09 20:40 | NUR ---
NURSING NOTE; AT 2024, PT HAD 16 BEAT RUN V-TACH. PT ASYMPTOMATIC. SLEEPING AT THE TIME. MADE AWARE. NO FURTHER ORDERS. WILL CONTINUE TO MONITOR.
[2016-06-09 23:28] VITALS: BP 120/70
--- NOTE | 2016-06-10 07:28 | PN- Housestaff ---
Subjective Follow-up For: Acute CHF exacerbation Tele-Events Since Last Visit: viraj,HR 50-60s had a 16 beat VT yesterday night Subjective: Seen and examined patient. States that he has been having episodes where he gets short of breath even at rest. Continues to complain of bilateral hip pain that radiates down to his legs when he walks, his PCP has referred him to a coal shooter. He has been told that he has sacroiliitis. Oxycodone that was given to him yesterday helped him. Also reported that he did not make a lot of urine last night. Review of Systems Constitutional: Denies: chills, diaphoresis, fever, malaise, weakness, unexplained weight loss. Cardiovascular: Denies: chest pain, edema, orthopena, palpitations, peripheral edema, syncope. Respiratory: Reports: short of breath. Denies: cough, hemoptysis, orthopnea, sputum production, stridor, wheezing. Objective Last 24 Hrs of Vital Signs/I&O Vital Signs Date Time Temp Pulse Resp B/P Pulse O2 O2 Flow FiO2 Ox Delivery Rate 06/10 0752 98.3 83 18 130/60 95 Room Air 06/09 2328 98.5 80 18 120/70 97 Room Air 06/09 1621 98.0 48 18 123/67 96 Room Air 06/09 1600 Room Air 06/09 1132 56 120/50 06/09 0819 97.4 81 18 110/70 96 Room Air Intake & Output 06/10 1600 06/10 0800 06/10 0000 Intake Total 100 520 Output Total 350 500 Balance -250 20 Intake, Oral 100 520 Output, Urine 350 500 Patient 170 lb Weight Physical Exam General Appearance: Alert, Oriented X3, Cooperative, No Acute Distress Cardiovascular: Normal S1, splitting of s2, short systolic murmur Lungs: Clear to Auscultation, Normal Air Movement Abdomen: Soft, No Tenderness Extremities: No Edema Current Medications: Current Medications Sig/Duane Start time Last Medication Dose Route Stop Time Status Admin Acetaminophen 650 MG Q6P PRN 06/07 2245 AC 06/08 PO 0800 Aspirin Buffered 81 MG DAILY 06/08 1000 AC 06/09 PO 0947 Atorvastatin Calcium 40 MG 1700 06/08 1700 AC 06/09 PO 1751 Diltiazem HCl 180 MG DAILY 06/08 1000 AC 06/09 PO 0947 Furosemide 40 MG ONCE ONE 06/09 1330 DC 06/09 IV 06/09 1331 1459 Magnesium Oxide 400 MG ONE ONE 06/09 0900 DC / PO 06/09 0901 0947 Metoprolol Succinate 25 MG DAILY 06/09 1000 DC 06/09 PO 1132 Oxycodone HCl 5 MG Q6P PRN 06/07 2245 AC 06/09 PO 0859 Oxycodone HCl 10 MG Q6P PRN 06/07 2245 AC PO Patient Medication 1 ED .STK-MED ONE 06/09 1347 DC Teaching ED 06/09 1348 Warfarin Sodium 3 MG COUMADIN 1700 ONE 06/09 1700 DC / PO 06/09 1701 1752 Last 24 Hrs of Lab/Zachary Results Last 24 Hrs of Labs/Mics: Laboratory Tests 06/10/16 0605: Sodium Pending, Potassium Pending, Chloride Pending, Carbon Dioxide Pending, Anion Gap Pending, BUN Pending, Creatinine Pending, BUN/Creatinine Ratio Pending , Magnesium Pending, PT Pending, INR Pending Assessment/Plan Assessment: 81-year-old gentleman with a past history significant for hypertension, atrial fibrillation, hyperlipidemia, coronary artery disease, Bypass surgery in 1980, and 1991, several recurrent angioplasties, porcine aortic valve replacement admitted for shortness of breath, was given IV Lasix yesterday. Continues to be in a flutter and had a 16 beat VT last night. Problem list: A flutter New onset CHF Pulmonary edema Porcine aortic valve Hypertension Hyperlipidemia GABINO Plan: ACS ruled out by negative troponins and no new EKG changes continue strict I's and O's, -170 fluid balance Echo shows normal EF continue cardiazem metoprolol XR on hold, on discharge will hold his metoprolol and lisinopril cxr yesterday showed no pleural effusions or edema INR 2.55, will dose 3 mg coumadin creatinine 1.7 today, instructed to check his BMP on June 21 PT suggesting home PT however patient declined and said that he will follow up with his PCP heart healthy diet DVT prophylaxis with Coumadin Full code stable for discharge to home Problem List: 1. Pulmonary edema 2. CHF (congestive heart failure) 3. Coronary arteriosclerosis Pain Ratin Pain Location: bilateral hip Pain Goal: Pain 4 or less Pain Plan: Current regimen Tomorrow's Labs & Rationales: NONE REQUIRED
--- NOTE | 2016-06-10 07:45 | NUR ---
WOUND CARE: REQUESTED BY NURSING STAFF TO EVALUATE PT FOR SKIN ALTERATIONS POA - PT PRESENTS WITH DRIED SCABBED PINPOINT AREAS X 5 BLE - PT REPORTS HE OCCASIONALLY WILL GET SWELLING, FB BLISTERING, FB SUPERFICIAL AREAS OF SKIN BREAKDOWN WHICH HEAL RAPIDLY - PT ALSO REPORTS USE OF COMPRESSION STOVCKINGS AT HOME RECOMMENDATION: NO TOPICAL WOUND CARE INDICATED AT PRESENT - ENCOURAGE ELEVATION OF BLE AND PT MAY BENEFIT FROM VASCULAR EVAL OUTPT FOR VENOUS EVALUATION
[2016-06-10 07:52] VITALS: BP 130/60
[2016-06-10 08:28] LABS: PT 26.5 SEC (9.4-12.5)
--- NOTE | 2016-06-10 11:33 | Patient Discharge Instructions ---
Discharge Instructions General Discharge Information You were seen/treated for: acute congestive heart failure Special Instructions: Please follow up with your primary care physician within one week of discharge Please follow-up with your post doc fellowship within 2 week of discharge please repeat your BMP and INR June 14 Acute Coronary Syndrome Inclusion Criteria At DC or during hospital stay patient has or had the following: ACS DIAGNOSIS No Discharge Core Measures Meds if any: Prescribed or Continued at Discharge Meds if any: NOT Prescribed or Continued at Discharge Congestive Heart Failure Inclusion Criteria At DC or during hospital stay patient has or had the following: CHF DIAGNOSIS Yes Discharge Core Measures Meds if any: Prescribed or Continued at Discharge ZAC/ARB for EF <40% No Meds if any: NOT Prescribed or Continued at Discharge No ZAC/ARB d/t Medical Contraindication Comment lele Cerebrovascular accident Inclusion Criteria At DC or during hospital stay patient has or had the following: CVA/TIA Diagnosis No Discharge Core Measures Meds if any: Prescribed or Continued at Discharge Meds if any: NOT Prescribed or Continued at Discharge Venous thromboembolism Inclusion Criteria VTE Diagnosis No VTE Type NONE VTE Confirmed by (Test) NONE Discharge Core Measures - Per Current guidelines, there needs to be overlap - treatment for the first 5 days of Warfarin therapy. - If discharged on Warfarin prior to 5 days of - overlap therapy, the patient will need to be - assessed for post discharge needs including - *Post discharge parental anticoagulation - *Warfarin and/or parental anticoagulation education - *Follow up date to check INR post discharge At least 5 days overlap therapy as Inpatient No Meds if any: Prescribed or Continued at Discharge Note: Overlap Therapy is Warfarin and Anticoagulant Meds if any: NOT Prescribed or Continued at Discharge
--- NOTE | 2016-06-10 11:46 | PN- Cardiology ---
Subjective Subjective: The patient has no complaints today. He ambulated with physical therapy and did well. He's had no chest pain or shortness of breath. He did have a brief run of nonsustained ventricular tachycardia yesterday which was asymptomatic. Otherwise he remains in atrial flutter. His metoprolol has been stopped because of periods of bradycardia. He remains on diltiazem. Objective Vital Signs and I&Os Vital Signs Date Time Temp Pulse Resp B/P Pulse O2 O2 Flow FiO2 Ox Delivery Rate 06/10 0752 98.3 83 18 130/60 95 Room Air 06/09 2328 98.5 80 18 120/70 97 Room Air 06/09 1621 98.0 48 18 123/67 96 Room Air 06/09 1600 Room Air Intake & Output 06/10 1600 06/10 0800 06/10 0000 06/09 1600 06/09 0800 06/09 0000 Intake Total 100 520 560 0 480 Output Total 350 500 300 200 400 Balance -250 20 260 -200 80 Intake, Oral 100 520 560 0 480 Output, Urine 350 500 300 200 400 Patient 170 lb Weight Physical Exam: HEENT exam is normal Chest is clear Heart reveals irregular rhythm with systolic ejection murmur at the base Extremities reveal no edema Current Medications: Current Medications Sig/Duane Start time Last Medication Dose Route Stop Time Status Admin Acetaminophen 650 MG Q6P PRN 06/07 2245 AC 06/08 PO 0800 Aspirin Buffered 81 MG DAILY 06/08 1000 AC 06/10 PO 0825 Atorvastatin Calcium 40 MG 1700 06/08 1700 AC 06/09 PO 1751 Diltiazem HCl 180 MG DAILY 06/08 1000 AC 06/10 PO 0825 Furosemide 40 MG ONCE ONE 06/09 1330 DC 06/09 IV 06/09 1331 1459 Metoprolol Succinate 25 MG DAILY 06/09 1000 DC 06/09 PO 1132 Oxycodone HCl 5 MG Q6P PRN 06/07 2245 AC 06/10 PO 0825 Oxycodone HCl 10 MG Q6P PRN 06/07 2245 AC PO Patient Medication 1 ED .STK-MED ONE 06/09 1347 DC Teaching ED 06/09 1348 Warfarin Sodium 3 MG COUMADIN 1700 ONE 06/10 1700 AC PO 06/10 1701 Warfarin Sodium 3 MG COUMADIN 1700 ONE 06/09 1700 DC 06/09 PO 03/02 1701 1752 Results Last 48 Hrs of Labs/Mics: Laboratory Tests 06/10/16 0605: Anion Gap 7, Estimated GFR 39 L, BUN/Creatinine Ratio 18.2, Magnesium 1.8, PT 26.5 H, INR 2.55 H 06/09/16 0610: Anion Gap 6, Estimated GFR 42 L, BUN/Creatinine Ratio 16.3, Magnesium 1.7, PT 24.3 H, INR 2.33 H 06/08/16 1800: Anion Gap 10, Estimated GFR 42 L, BUN/Creatinine Ratio 15.6, Magnesium 1.6 06/08/16 1739: Magnesium Cancelled Assessment/Plan Assessment/Plan Mr. Alston is improved. He feels back to normal. He is not clinically in congestive heart failure. His medications have been adjusted. I think he is stable for discharge at this time. We will send him home on Lasix but without metoprolol. We will arrange for a follow-up BMP in one week and I will see him in the office in 2 weeks. Continue telemetry? Not applicable
--- NOTE | 2016-06-10 14:06 | Discharge Summary ---
Visit Information Visit Dates Admission Date: 06/07/16 Discharge Date: 06/10/16 Hospital Course Course Attending Physician: VANCE SANDERS,BRIELLE Capps Primary Care Physician: SWETHA TERRAZAS MD Hospital Course: 81-year-old gentleman with a past history significant for hypertension, atrial fibrillation, hyperlipidemia, coronary artery disease status post CABG in 2004, aortic valve replacement with porcine presents to the emergency room sent in from his PCPs office with progressive dyspnea. Vitals on admission: Afebrile, heart rate 52, respiratory 24, blood pressure 144 /69 Labs pertinent for a chin H 12.9/39.3, sodium 139, potassium 4.8, BUN 29, creatinine 1.7 EKG Results Rate 49, QRS 138, QTC 387, atrial fibrillation, right bundle ranch block, no changes since previous tracing CXR Results IMPRESSION: Findings suggestive of volume overload with central vascular prominence and interstitial prominence. Prominent cardiac silhouette. He was admitted to the telemetry floor and the following issues were addressed: A flutter He remained in a flutter, but had frequent episodes of bradycardia down to the 40s and also one episode of 16 beat V. tach. His metoprolol was discontinued and he was continued on his Cardizem. New onset chronic CHF Strict I's and O's was maintained he was diuresed by IV Lasix and then later transitioned to his home dose of by mouth Lasix. Porcine aortic valve His INR remained therapeutic and his Coumadin was dosed daily based on his INR. GABINO His creatinine trended up and on discharge day his creatinine is 1.7, this was thought to be secondary to his Lasix administration. His lisinopril was also held on discharge. Was instructed to check his BMP on June 21. Physical therapy recommended home PT however patient declined and said that he would follow this up with his primary care physician once workup of his bilateral hip plain was done. Complications: none Allergies: Coded Allergies: Penicillins (Mild, RASH 06/07/16) Significant Procedures: SERVICE DATE: 06/07/16 EXAM TYPE: RAD - XRY-PORTABLE CHEST XRAY FINDINGS: Cardiac leads overlie the chest. Median sternotomy wires appear intact. Surgical clips overlie the mediastinum. The lungs are well expanded. Mild interstitial prominence noted with central vascular prominence. No pleural effusion or pneumothorax. The cardiomediastinal silhouette remains prominent. IMPRESSION: Findings suggestive of volume overload with central vascular prominence and interstitial prominence. Prominent cardiac silhouette. SERVICE DATE: 06/08/16- EXAM TYPE: CARD - ECHOCARDIOGRAM FINDINGS Left Ventricle Normal size left ventricle. Moderate concentric left ventricular hypertrophy. Normal left ventricular ejection fraction visually estimated at >65 %. No obvious regional wall motion abnormalities. Right Ventricle The right ventricle is normal in size and function. Right Atrium The right atrium is normal in size. Left Atrium Mild left atrial dilatation. Mitral Valve The mitral valve is moderately thickened with reduced opening. There is moderate calcification of the mitral annulus posteriorly. There is mild to moderate mitral stenosis. There is mild mitral regurgitation. Aortic Valve The aortic valve is a bioprosthesis. The valve leaflets are thickened with reduced opening. There is mild aortic stenosis. Trace aortic regurgitation. Tricuspid Valve Structurally normal tricuspid valve. [id number] tricuspid regurgitation. Right ventricular systolic pressure estimated to be elevated at 45-50 mmHg. Moderate pulmonary hypertension. Pulmonic Valve Pulmonic valve not well visualized. No pulmonic regurgitation. Pericardium Normal pericardium without effusion. No pleural effusion. Great Vessels The aortic root is normal size. The inferior vena cava is mildly dilated. CONCLUSIONS Moderate concentric left ventricular hypertrophy. Normal left ventricular ejection fraction visually estimated at >65 No obvious regional wall motion abnormalities. Mild left atrial dilatation. The mitral valve is moderately thickened with reduced opening. There is moderate calcification of the mitral annulus posteriorly. There is mild to moderate mitral stenosis. There is mild mitral regurgitation. The aortic valve is a bioprosthesis. The valve leaflets are thickened with reduced opening. There is mild aortic stenosis. Trace aortic regurgitation. [id number] tricuspid regurgitation. Right ventricular systolic pressure estimated to be elevated at 45- 50 mmHg. Moderate pulmonary hypertension. The inferior vena cava is mildly dilated. SERVICE DATE: 06/09/16 EXAM TYPE: RAD - XRY-CHEST XRAY, PA AND LATERAL FINDINGS: There is borderline heart size. There is stable scarring in the lingula. There is no congestion or focal consolidation. There is no edema. There are no pleural effusions. Intact sternal wires are again noted. IMPRESSION: Stable lingular scarring. Otherwise, no acute cardiopulmonary process. Disposition Summary Disposition Principal Diagnosis: new onset chf Additional Diagnosis: A flutter Porcine aortic valve Hypertension Hyperlipidemia GABINO Discharge Disposition: home or self care Discharge Instructions General Discharge Information Code Status: Full Code Patient's Diet: heart healthy Patient's Activity: as tolerated Follow-Up Instructions/Appts: follow up with primary care physician within one week of discharge Follow-up with service tester within 2 week of discharge Repeat your BMP and INR June 14 Medications at Discharge Discharge Medications: Stop taking the following medications: Metoprolol Succinate (Metoprolol Succinate) 50 MG TAB.ER.24H ORAL DAILY Qty = 90 Lisinopril (Lisinopril) 40 MG TABLET ORAL DAILY Qty = 90 Continue taking these medications: Diltiazem HCl (Diltiazem 24HR ER) 180 MG CAP.ER.24H 1 Capsule ORAL DAILY Qty = 90 Comments: Last Taken: 06/10/16 Time: 0830 Atorvastatin Calcium (Atorvastatin Calcium) 40 MG TABLET 1 Tablet ORAL DAILY Qty = 90 Comments: Last Taken: 06/09/16 Time: 6PM Furosemide (Furosemide) 20 MG TABLET 1 Tablet ORAL DAILY Qty = 90 Comments: NOT GIVEN IN HOSPITAL Warfarin Sodium (Warfarin Sodium) 3 MG TABLET 1 Tablet ORAL DAILY Qty = 90 Comments: Last Taken: 06/09/16 Time: 6PM Aspirin (Ecotrin*) 81 MG TABLET.DR 1 Tablet ORAL DAILY Comments: Last Taken: 06/10/16 Time: 0830 Ergocalciferol (Vitamin D2) (Vitamin D) 400 UNIT TABLET 2 Tablet ORAL DAILY Comments: NOT GIVEN IN HOSPITAL Flaxseed Oil (Flax Oil) 1,000 MG CAPSULE 1 Capsule ORAL DAILY Comments: NOT GIVEN IN HOSPITAL Copies To: NINI SANDERS,SWETHA Anderson Attending MD Review Statement Documenting Attending: VANCE SANDERS,BRIELLE Capps Other Findings: This patient presented with new onset CHF, due to acute LV diastolic dysfunction , contributed by atrial flutter, and valvular heart disease ( and MS). He is improved and will be discharrged on a diuretic in addition to his other medications.
== END 2016-06-10 13:30 | DRG 291 ==
LOC: ENRESERVTM → ENRESERVDT → ERH 16:08 → ERHI 21:49 → 1NO 21:49 → ENPENDDIS 21:49 → 1NO 06-08 00:01
PROVIDERS: Internal Medicine; Physician Assistant Surgical; ADMIT Internal Medicine
DX: I13.0 Hypertensive heart and chronic kidney disease with heart failure and stage 1 through stage 4 chronic kidney disease, or unspecified chronic kidney disease (principal); I50.31 Acute diastolic (congestive) heart failure; I47.2 Ventricular tachycardia; I48.92 Unspecified atrial flutter; Z95.3 Presence of xenogenic heart valve; I48.91 Unspecified atrial fibrillation; E78.5 Hyperlipidemia, unspecified; I25.10 Atherosclerotic heart disease of native coronary artery without angina pectoris; R00.1 Bradycardia, unspecified; I08.0 Rheumatic disorders of both mitral and aortic valves; N18.9 Chronic kidney disease, unspecified; Z85.46 Personal history of malignant neoplasm of prostate; Z95.1 Presence of aortocoronary bypass graft; Z87.891 Personal history of nicotine dependence
CPT/HCPCS: 1NSP; ERO; 36415; 82436; 93005; 93010; 93306; 96374; 97110-GO; 97116-GO; 97161-GP; J0461; J1940